=== PATIENT | male | born 1960 | race Caucasian/White ===

== ENCOUNTER 2017-12-29 14:58 | Inpatient (IN) | payer MEDICAID ==
[~2017-12-29] VITALS: Ht 175.3 cm; Wt 63.0 kg
[~2017-12-29 14:58] MED LIST: IBUP-1985 PO; METH-360 PO
[2017-12-29 15:46] LABS: BASOPHILS # (AUTO) 0.1 X10'3 (0-0.2); BASOPHILS % (AUTO) 0.5 % (0-1); EOSINOPHILS % (AUTO) 0 % (0-6); HEMATOCRIT 49.4 % (42.0-52.0); HEMOGLOBIN 16.5 g/dl (14.0-17.9); LYMPHOCYTES % (AUTO) 19.6 % (21-51); MEAN CORPUSCULAR HEMOGLOBIN 31.5 PG (27.0-31.0); MEAN CORPUSCULAR HGB CONC 33.3 % (33.0-36.5); MEAN CORPUSCULAR VOLUME 94.6 FL (78-98); MEAN PLATELET VOLUME 9.8 FL (7.4-10.4); MONOCYTES # (AUTO) 0.6 X10'3 (0-0.9); MONOCYTES % (AUTO) 5.6 % (2-12); NEUTROPHILS # (AUTO) 7.6 X10'3 (1.8-7.7); NEUTROPHILS % (AUTO) 74.3 % (42-75); PLATELET COUNT 209 X10'3 (140-440); RED BLOOD COUNT 5.22 X10'6 (4.70-6.10); RED CELL DISTRIBUTION WIDTH 14.2 % (11.5-14.5); WHITE BLOOD COUNT 10.2 X10'3 (4.5-11.0)
[2017-12-29 15:53] LABS: INR 1.1 INR; PARTIAL THROMBOPLASTIN TIME 27 SECONDS (22-32); PROTHROMBIN TIME 11.4 SECONDS (9.0-12.0)
[2017-12-29 15:59] LABS: ALANINE AMINOTRANSFERASE 85 U/L (12-78); ALBUMIN 3.6 G/DL (3.4-5.0); ALBUMIN/GLOBULIN RATIO 1.3 (1.1-1.5); ALKALINE PHOSPHATASE 80 IU/L (46-116); ANION GAP 9 (8-16); ASPARTATE AMINO TRANSFERASE 38 U/L (10-37); BILIRUBIN,TOTAL 1.2 MG/DL (0.1-1.0); BLOOD UREA NITROGEN 25 MG/DL (7-18); BUN/CREATININE RATIO 19.8 (5.4-32.0); CHLORIDE 107 MMOL/L (99-107); CREATININE 1.26 MG/DL (0.60-1.10); GLUCOSE 169 MG/DL (70-104); POTASSIUM 4.6 MMOL/L (3.5-5.1); SODIUM 143 MMOL/L (135-145); TOTAL CARBON DIOXIDE 26.7 MMOL/L (24-32); TOTAL PROTEIN 6.4 G/DL (6.4-8.2); eGFR 59 ML/MIN
[2017-12-29] MEDS ORDERED: furosemide 10 MG/1 ML 10ml inj IV ONE (17:00)
[2017-12-29 17:17] LABS: ETHANOL < 0.010 GM/DL (0.0-0.010)
[2017-12-29] MEDS ORDERED: ASPI-611 PO (17:39)
[2017-12-29 17:42] LABS: URINE AMPHETAMINE SCREEN POSITIVE (Neg); URINE BARBITUATE SCREEN NEGATIVE (Neg); URINE BENZODIAZEPINES SCREEN NEGATIVE (Neg); URINE CANNABINOID SCREEN NEGATIVE (Neg); URINE COCAINE SCREEN NEGATIVE (Neg); URINE METHADONE SCREEN NEGATIVE (Neg); URINE OPIATE SCREEN NEGATIVE (Neg); URINE PHENCYCLIDINE SCREEN NEGATIVE (Neg)
[2017-12-29] MEDS ORDERED: potassium Cl 20 mEq SR tablet PO PRN ×2 (18:00)
[2017-12-29] MEDS ORDERED: ondansetron/PF 4mg/2ml inj IV PRN (18:00)
[2017-12-29] MEDS ORDERED: LORazepam 1 MG tablet PO PRN (18:00)
[2017-12-29] MEDS ORDERED: LORazepam 2 mg/ml vial IV PRN (18:00)
[2017-12-29] MEDS ORDERED: mag hydrox/Alum hydrox/simeth 30ml oral suspension PO PRN (18:00)
[2017-12-29] MEDS ORDERED: HYDROcodone/acetaminophen 5mg/325mg tablet PO PRN (18:00)
[2017-12-29] MEDS ORDERED: HYDROcodone/acetaminophen 10/325mg tab PO PRN (18:00)
[2017-12-29] MEDS ORDERED: thiamine 100mg/ml 2ml inj. IV ONE (18:00)
[2017-12-29] MEDS ORDERED: dextrose 50%-water 50ml dispensing syringe IV PRN (18:00)
[2017-12-29] MEDS ORDERED: magnesium 4gm in 100ml NS 100 ML IV PRN (18:00)
[2017-12-29] MEDS ORDERED: potassium Cl 40MEQ/NS 500ml 500 ML IV PRN ×2 (18:00)
[2017-12-29] MEDS ORDERED: acetaminophen 325mg tablet PO PRN ×2 (18:00)
[2017-12-29] MEDS ORDERED: magnesium hydroxide 30ml (MOM) UD suspension PO PRN (18:00)
[2017-12-29] MEDS ORDERED: magnesium 2GM in 50ml NS 50 ML IV PRN (18:00)
[2017-12-29] MEDS ORDERED: magnesium Cl slow-release 64mg tablet PO PRN (18:00)
[2017-12-29] MEDS ORDERED: albuterol 2.5 MG/3 ML nebule NEB PRN (18:10)
[2017-12-29] MEDS ORDERED: iohexol 350MG/ML 100ml bottle IV ONE (18:12)
[2017-12-29] MEDS: normal saline 1000ml 1,000 ML IV SCH (19:33)
[2017-12-29] MEDS: metoprolol tartrate 25mg tablet PO SCH (19:33)
[2017-12-29 19:51] LABS: ABG BASE EXCESS -3.8 mmol/L (-2.0-3.0); ABG HCO3 18.2 mmol/L (22.0-26.0); ABG OXYGEN SATURATION 97.5 % (95-98); ABG PCO2 (T) 25.9 mmHg (35.0-48.0); ABG PH (T) 7.462 (7.350-7.450); ABG PO2 (T) 89.8 mmHg (83-108); ALLEN'S TEST Positive; FCOHb 0.8 % (0.5-1.5); FMetHb 0.3 % (0.3-1.12); FO2Hb 96.4 % (94-100); PATIENT TEMPERATURE 36.3; RESPIRATORY RATE (OBSERVED) 20 b/min; TOTAL HEMOGLOBIN 17.1 G/dl (14.0-18.0)
[2017-12-29 20:50] LABS: CLARITY,URINE CLEAR (Clear); COLOR,URINE YELLOW (Yellow); GLUCOSE, URINE NEGATIVE (Neg); KETONES,URINE NEGATIVE (Neg); LEUKOCYTE ESTERASE ,URINE NEGATIVE (Neg); NITRITES, URINE NEGATIVE (Neg); OCCULT BLOOD,URINE NEGATIVE (Neg); PH,URINE 5.5 (4.8-8.0); PROTEIN,URINE TRACE mg/dl (Neg); UROBILINOGEN,URINE 0.2 E.U/dL (0.2-1.0)
[2017-12-29 20:53] LABS: UA COLLECTION TYPE CLN CATCH MIDSTREAM
[2017-12-29 20:56] LABS: BACTERIA,URINE FEW /HPF (Neg); MUCUS STRANDS FEW /LPF (Neg); RBC,URINE 0-2 /HPF (0-2); SQUAMOUS EPITHELIAL CELL,UR FEW /LPF (FEW); WBC,URINE 0-4 /HPF (0-4)
[2017-12-29] MEDS ORDERED: CefTRIAXone 2gm/D5W 50ml 50 ML IV SCH (21:00)
[2017-12-29] MEDS ORDERED: temazepam 15mg capsule PO PRN (21:00)
[2017-12-29 21:45] VITALS: BP 117/84
[2017-12-30 00:21] VITALS: BP 115/81
[2017-12-30 05:30] LABS: BASOPHILS # (AUTO) 0.1 X10'3 (0-0.2); BASOPHILS % (AUTO) 0.7 % (0-1); EOSINOPHILS # (AUTO) 0.2 X10'3 (0-0.9); EOSINOPHILS % (AUTO) 1.5 % (0-6); HEMATOCRIT 46.2 % (42.0-52.0); HEMOGLOBIN 15.7 g/dl (14.0-17.9); LYMPHOCYTES # (AUTO) 1.7 X10'3 (1.1-4.8); LYMPHOCYTES % (AUTO) 16.3 % (21-51); MEAN CORPUSCULAR HEMOGLOBIN 31.9 PG (27.0-31.0); MEAN CORPUSCULAR VOLUME 93.9 FL (78-98); MEAN PLATELET VOLUME 10.2 FL (7.4-10.4); MONOCYTES # (AUTO) 0.6 X10'3 (0-0.9); MONOCYTES % (AUTO) 5.8 % (2-12); NEUTROPHILS % (AUTO) 75.7 % (42-75); PLATELET COUNT 181 X10'3 (140-440); RED BLOOD COUNT 4.93 X10'6 (4.70-6.10); RED CELL DISTRIBUTION WIDTH 14.3 % (11.5-14.5); WHITE BLOOD COUNT 10.5 X10'3 (4.5-11.0)
[2017-12-30 05:46] LABS: ALANINE AMINOTRANSFERASE 77 U/L (12-78); ALBUMIN 3.2 G/DL (3.4-5.0); ALBUMIN/GLOBULIN RATIO 1.2 (1.1-1.5); ALKALINE PHOSPHATASE 73 IU/L (46-116); ANION GAP 13 (8-16); ASPARTATE AMINO TRANSFERASE 35 U/L (10-37); BILIRUBIN,TOTAL 0.5 MG/DL (0.1-1.0); BLOOD UREA NITROGEN 31 MG/DL (7-18); BUN/CREATININE RATIO 24.6 (5.4-32.0); CALCIUM 8.9 MG/DL (8.5-10.1); CHLORIDE 105 MMOL/L (99-107); CREATININE 1.26 MG/DL (0.60-1.10); GLUCOSE 100 MG/DL (70-104); MAGNESIUM 2.1 MG/DL (1.5-2.4); POTASSIUM 4.1 MMOL/L (3.5-5.1); SODIUM 140 MMOL/L (135-145); TOTAL CARBON DIOXIDE 22.2 MMOL/L (24-32); TOTAL PROTEIN 5.9 G/DL (6.4-8.2); eGFR 59 ML/MIN
[2017-12-30 05:56] LABS: LARGE PLATELETS FEW; PLATELET ESTIMATE NORMAL
[2017-12-30 07:33] VITALS: BP 130/85
[2017-12-30] MEDS: K and/or MAG REPLACEMENT MC SCH (08:00)
[2017-12-30] MEDS ORDERED: aspirin 81mg tablet.DR PO SCH ×2 (08:00→08:15)
[2017-12-30] MEDS: metoprolol tartrate 25mg tablet PO SCH (08:36)
[2017-12-30] MEDS: enoxaparin 40mg/0.4ml syringe SQ SCH (08:38)
[2017-12-30 11:33] VITALS: BP 114/81
[2017-12-30] MEDS ORDERED: LORazepam 2 mg/ml vial IV PRN (12:05)
[2017-12-30] MEDS ORDERED: LORazepam 1 MG tablet PO PRN (12:05)
[2017-12-30 20:00] VITALS: BP 122/91
[2017-12-30] MEDS: carVEDilol 3.125mg tablet PO SCH (20:22)
[2017-12-30] MEDS: normal saline 1000ml 1,000 ML IV SCH (20:32)
[2017-12-31] VITALS: BP 119/78
[2017-12-31] MEDS: normal saline 1000ml 1,000 ML IV SCH (02:13)
[2017-12-31 05:24] LABS: BASOPHILS # (AUTO) 0.1 X10'3 (0-0.2); EOSINOPHILS # (AUTO) 0.2 X10'3 (0-0.9); EOSINOPHILS % (AUTO) 1.9 % (0-6); HEMATOCRIT 45.1 % (42.0-52.0); HEMOGLOBIN 15.1 g/dl (14.0-17.9); LYMPHOCYTES # (AUTO) 1.6 X10'3 (1.1-4.8); LYMPHOCYTES % (AUTO) 18.2 % (21-51); MEAN CORPUSCULAR HEMOGLOBIN 31.6 PG (27.0-31.0); MEAN CORPUSCULAR HGB CONC 33.5 % (33.0-36.5); MEAN CORPUSCULAR VOLUME 94.2 FL (78-98); MEAN PLATELET VOLUME 9.8 FL (7.4-10.4); MONOCYTES # (AUTO) 0.5 X10'3 (0-0.9); MONOCYTES % (AUTO) 5.7 % (2-12); NEUTROPHILS # (AUTO) 6.5 X10'3 (1.8-7.7); NEUTROPHILS % (AUTO) 73.2 % (42-75); RED BLOOD COUNT 4.78 X10'6 (4.70-6.10); RED CELL DISTRIBUTION WIDTH 14.8 % (11.5-14.5); WHITE BLOOD COUNT 8.9 X10'3 (4.5-11.0)
[2017-12-31 05:50] LABS: ALANINE AMINOTRANSFERASE 74 U/L (12-78); ALBUMIN/GLOBULIN RATIO 1.2 (1.1-1.5); ALKALINE PHOSPHATASE 68 IU/L (46-116); ANION GAP 8 (8-16); ASPARTATE AMINO TRANSFERASE 33 U/L (10-37); BILIRUBIN,TOTAL 0.8 MG/DL (0.1-1.0); BLOOD UREA NITROGEN 25 MG/DL (7-18); BUN/CREATININE RATIO 22.1 (5.4-32.0); CALCIUM 8.5 MG/DL (8.5-10.1); CHLORIDE 110 MMOL/L (99-107); CREATININE 1.13 MG/DL (0.60-1.10); GLUCOSE 102 MG/DL (70-104); POTASSIUM 4.6 MMOL/L (3.5-5.1); SODIUM 142 MMOL/L (135-145); TOTAL PROTEIN 5.5 G/DL (6.4-8.2); eGFR 67 ML/MIN
[2017-12-31 06:08] LABS: PLATELET COUNT 194 X10'3 (140-440)
[2017-12-31 07:01] VITALS: BP 114/64
[2017-12-31] MEDS: carVEDilol 3.125mg tablet PO SCH (07:48)
[2017-12-31] MEDS: enoxaparin 40mg/0.4ml syringe SQ SCH (07:51)
[2017-12-31] MEDS: K and/or MAG REPLACEMENT MC SCH (07:51)
[2017-12-31] MEDS ORDERED: lisinopril 5mg tablet PO SCH (08:00)
[2017-12-31] MEDS ORDERED: LISI-604 PO (08:39)
[2017-12-31] MEDS ORDERED: SPIR25TA3 PO (08:39)
[2017-12-31] MEDS ORDERED: COR3.125T PO (08:39)
[2017-12-31 12:21] VITALS: BP 116/84
== END 2017-12-31 13:56 | disposition home or self-care (01) | DRG 194 ==
LOC: ER 14:59 → ED HOLD 17:39 → SUR 3N 21:35
PROVIDERS: ADMIT Internal Medicine; ATTEND Internal Medicine
PROC: B32T1ZZ Computerized Tomography (CT Scan) of Left Pulmonary Artery using Low Osmolar Contrast (ICD-10-PCS; principal; 2017-12-29)
PROC: B3201ZZ Computerized Tomography (CT Scan) of Thoracic Aorta using Low Osmolar Contrast (ICD-10-PCS; 2017-12-29)
PROC: B32S1ZZ Computerized Tomography (CT Scan) of Right Pulmonary Artery using Low Osmolar Contrast (ICD-10-PCS; 2017-12-29)
DX: I50.21 Acute systolic (congestive) heart failure (principal); I42.0 Dilated cardiomyopathy; F10.10 Alcohol abuse, uncomplicated; F17.200 Nicotine dependence, unspecified, uncomplicated; F15.90 Other stimulant use, unspecified, uncomplicated; N28.9 Disorder of kidney and ureter, unspecified; R94.31 Abnormal electrocardiogram [ECG] [EKG]; Z79.899 Other long term (current) drug therapy; Z91.81 History of falling
CPT/HCPCS: 36415; 36600; 71045; 71275; 80053; 80305; 80320; 81001; 82803; 82948; 83605; 83735; 83880; 84484; 85018; 85025; 85610; 85730; 87040; 87070; 93005; 93306; 94760; 97116; 97161; 97530; J0696; J1650; J1940; J3411; J7030; Q9967

== ENCOUNTER 2020-03-04 12:02 | Inpatient (IN) | payer MEDICAID ==
[~2020-03-04] VITALS: Ht 175.3 cm; Wt 59.1 kg
[~2020-03-04 12:02] MED LIST changes: +ASPI-611 PO; +COR3.125T PO; -IBUP-1985 PO; +LISI-604 PO; -METH-360 PO; +SPIR25TA5 PO
[2020-03-04 12:29] LABS: BASOPHILS # (AUTO) 0.1 X10'3 (0-0.2); BASOPHILS % (AUTO) 0.8 % (0-1); EOSINOPHILS % (AUTO) 0.3 % (0-6); HEMATOCRIT 51.3 % (42.0-52.0); HEMOGLOBIN 16.9 g/dl (14.0-17.9); LYMPHOCYTES # (AUTO) 0.8 X10'3 (1.1-4.8); LYMPHOCYTES % (AUTO) 12.4 % (21-51); MEAN CORPUSCULAR HEMOGLOBIN 32.2 PG (27.0-31.0); MEAN CORPUSCULAR VOLUME 97.6 FL (78-98); MEAN PLATELET VOLUME 9.8 FL (7.4-10.4); MONOCYTES # (AUTO) 0.4 X10'3 (0-0.9); NEUTROPHILS # (AUTO) 5.3 X10'3 (1.8-7.7); NEUTROPHILS % (AUTO) 80.5 % (42-75); PLATELET COUNT 182 X10'3 (140-440); RED BLOOD COUNT 5.26 X10'6 (4.70-6.10); RED CELL DISTRIBUTION WIDTH 14.1 % (11.5-14.5); WHITE BLOOD COUNT 6.6 X10'3 (4.5-11.0)
[2020-03-04 12:43] LABS: ALANINE AMINOTRANSFERASE 53 U/L (12-78); ALBUMIN 3.6 G/DL (3.4-5.0); ALBUMIN/GLOBULIN RATIO 1.3 (1.1-1.5); ALKALINE PHOSPHATASE 46 IU/L (46-116); ANION GAP 11 (8-16); ASPARTATE AMINO TRANSFERASE 28 U/L (10-37); BILIRUBIN,TOTAL 1.8 MG/DL (0.1-1.0); BLOOD UREA NITROGEN 35 MG/DL (7-18); BUN/CREATININE RATIO 26.1 (5.4-32.0); CALCIUM 8.8 MG/DL (8.5-10.1); CHLORIDE 106 MMOL/L (99-107); CREATININE 1.34 MG/DL (0.60-1.10); GLUCOSE 129 MG/DL (70-104); SODIUM 137 MMOL/L (135-145); TOTAL CARBON DIOXIDE 20.5 MMOL/L (24-32); TOTAL PROTEIN 6.3 G/DL (6.4-8.2); eGFR 54 ML/MIN
[2020-03-04 12:52] LABS: LARGE PLATELETS FEW; PLATELET ESTIMATE NORMAL
[2020-03-04] MEDS ORDERED: iohexol 350MG/ML 100ml bottle IV ONE (12:55)
[2020-03-04] MEDS ORDERED: aspirin 81mg tab.chew PO ONE (12:55)
[2020-03-04] MEDS ORDERED: furosemide 10 MG/1 ML 10ml inj IV ONE (13:20)
[2020-03-04] MEDS ORDERED: magnesium hydroxide 30ml (MOM) UD suspension PO PRN (14:35)
[2020-03-04] MEDS ORDERED: ondansetron/PF 4mg/2ml inj IV PRN (14:35)
[2020-03-04] MEDS ORDERED: acetaminophen 325mg tablet PO PRN ×2 (14:35)
[2020-03-04] MEDS ORDERED: mag hydrox/Alum hydrox/simeth 30ml oral suspension PO PRN (14:35)
[2020-03-04] MEDS ORDERED: morphine 2 MG/ML inj. syringe IV PRN ×2 (14:35)
[2020-03-04] MEDS ORDERED: HYDROcodone/acetaminophen 5mg/325mg tablet PO PRN (14:35)
[2020-03-04] MEDS ORDERED: SPIR25TA5 PO (15:15)
[2020-03-04] MEDS ORDERED: SACU1TAB PO (15:15)
[2020-03-04] MEDS ORDERED: CARV6.253 PO (15:25)
--- NOTE | 2020-03-04 17:00 | NUR ---
RECEIVED TELEPHONE REPORT FROM ALISA WHITEHEAD
--- NOTE | 2020-03-04 17:01 | NUR ---
MARGARETH CARPIO:PLEASE CALL PRINCE [phone]. TY.
[2020-03-04 17:05] VITALS: BP 115/85
--- NOTE | 2020-03-04 18:30 | NUR ---
Patient in room PCU 3023. I have received report from ALISA Rosenberg and had the opportunity to ask questions and assume patient care.
--- NOTE | 2020-03-04 18:32 | NUR ---
Problems reprioritized. Patient report given, questions answered & plan of care reviewed with ALISA SPRINGER.
[2020-03-04 21:50] VITALS: BP 104/80
[2020-03-04] MEDS: furosemide 20 MG/2 ML vial IV SCH (21:57)
[2020-03-04] MEDS: carVEDilol 3.125mg tablet PO SCH (21:57)
[2020-03-05] VITALS (8 sets, daily range): BP systolic 89–107; BP diastolic 54–78
[2020-03-05 01:14] LABS: BASOPHILS # (AUTO) 0.1 X10'3 (0-0.2); HEMOGLOBIN 16.6 g/dl (14.0-17.9); MONOCYTES # (AUTO) 0.6 X10'3 (0-0.9); NEUTROPHILS # (AUTO) 5.4 X10'3 (1.8-7.7)
[2020-03-05 01:16] LABS: EOSINOPHILS # (AUTO) 0.1 X10'3 (0-0.9); EOSINOPHILS % (AUTO) 0.7 % (0-6); HEMATOCRIT 48.4 % (42.0-52.0); LYMPHOCYTES % (AUTO) 13.7 % (21-51); MEAN CORPUSCULAR HEMOGLOBIN 33.4 PG (27.0-31.0); MEAN CORPUSCULAR HGB CONC 34.3 g/dL (33.0-36.5); MEAN CORPUSCULAR VOLUME 97.4 FL (78-98); MEAN PLATELET VOLUME 10.2 FL (7.4-10.4); MONOCYTES % (AUTO) 8.4 % (2-12); NEUTROPHILS % (AUTO) 76.2 % (42-75); RED BLOOD COUNT 4.97 X10'6 (4.70-6.10); RED CELL DISTRIBUTION WIDTH 13.9 % (11.5-14.5)
[2020-03-05 01:19] LABS: ALBUMIN 3.5 G/DL (3.4-5.0); ANION GAP 11 (8-16); BLOOD UREA NITROGEN 42 MG/DL (7-18); BUN/CREATININE RATIO 26.4 (5.4-32.0); CALCIUM 8.7 MG/DL (8.5-10.1); CHLORIDE 103 MMOL/L (99-107); CHOL/HDL RATIO 3.4 (0.00-4.99); CHOLESTEROL 158 MG/DL (0-200); CREATININE 1.59 MG/DL (0.60-1.10); GLUCOSE 102 MG/DL (70-104); HDL CHOLESTEROL 47 MG/DL (35-60); LDL CHOLESTEROL 98 MG/DL (50-100); POTASSIUM 3.8 MMOL/L (3.5-5.1); SODIUM 137 MMOL/L (135-145); TOTAL CARBON DIOXIDE 23.1 MMOL/L (24-32); TRIGLYCERIDES 95 MG/DL (20-135); eGFR 45 ML/MIN
[2020-03-05 03:17] LABS: PLATELET COUNT 178 X10'3 (140-440)
--- NOTE | 2020-03-05 06:05 | NUR ---
Problems reprioritized. Patient report given, questions answered & plan of care reviewed with ALISA Rosenberg.
--- NOTE | 2020-03-05 06:37 | NUR ---
Patient in room PCU 3023. I have received report from ALISA SPRINGER and had the opportunity to ask questions and assume patient care.
[2020-03-05] MEDS: enoxaparin 40mg/0.4ml syringe SUBCUT SCH (08:00)
[2020-03-05] MEDS: furosemide 20 MG/2 ML vial IV SCH ×4 (08:30→19:39)
[2020-03-05] MEDS: carVEDilol 3.125mg tablet PO SCH ×3 (08:34→20:00)
[2020-03-05] MEDS: spironolactone 25 MG tablet PO SCH (08:39)
[2020-03-05] MEDS: lisinopril 2.5mg tablet PO SCH (08:40)
--- NOTE | 2020-03-05 18:09 | NUR ---
Problems reprioritized. Patient report given, questions answered & plan of care reviewed with ALISA SPRINGER.
--- NOTE | 2020-03-05 18:29 | NUR ---
Patient in room PCU 3023. I have received report from Irene Rosenberg and had the opportunity to ask questions and assume patient care.
--- NOTE | 2020-03-05 19:40 | NUR ---
Patient BP is below perameter togive IV lasix and Carvedilol. Will retake BP in an hour. Scanned and opened meds, aptient condition changed. Will waste meds in waste container.
[2020-03-06 02:21] VITALS: BP 96/65
[2020-03-06 05:24] LABS: EOSINOPHILS # (AUTO) 0.1 X10'3 (0-0.9); LYMPHOCYTES # (AUTO) 0.9 X10'3 (1.1-4.8); MEAN CORPUSCULAR HEMOGLOBIN 32.7 PG (27.0-31.0); MONOCYTES # (AUTO) 0.6 X10'3 (0-0.9); PLATELET COUNT 168 X10'3 (140-440); RED CELL DISTRIBUTION WIDTH 13.8 % (11.5-14.5); WHITE BLOOD COUNT 6.2 X10'3 (4.5-11.0)
[2020-03-06 05:25] LABS: BASOPHILS # (AUTO) 0.1 X10'3 (0-0.2); BASOPHILS % (AUTO) 1.2 % (0-1); EOSINOPHILS % (AUTO) 1.9 % (0-6); HEMOGLOBIN 16.3 g/dl (14.0-17.9); LYMPHOCYTES % (AUTO) 14.8 % (21-51); MEAN CORPUSCULAR HGB CONC 33.9 g/dL (33.0-36.5); MEAN CORPUSCULAR VOLUME 96.3 FL (78-98); MEAN PLATELET VOLUME 10.7 FL (7.4-10.4); MONOCYTES % (AUTO) 10.2 % (2-12); NEUTROPHILS # (AUTO) 4.4 X10'3 (1.8-7.7); NEUTROPHILS % (AUTO) 71.9 % (42-75); RED BLOOD COUNT 4.99 X10'6 (4.70-6.10)
[2020-03-06 05:32] LABS: ALBUMIN 3.3 G/DL (3.4-5.0); ANION GAP 8 (8-16); BLOOD UREA NITROGEN 39 MG/DL (7-18); BUN/CREATININE RATIO 29.5 (5.4-32.0); CALCIUM 8.7 MG/DL (8.5-10.1); CHLORIDE 104 MMOL/L (99-107); CREATININE 1.32 MG/DL (0.60-1.10); GLUCOSE 130 MG/DL (70-104); SODIUM 138 MMOL/L (135-145); TOTAL CARBON DIOXIDE 25.8 MMOL/L (24-32); eGFR 55 ML/MIN
[2020-03-06 06:00] VITALS: BP 95/65
--- NOTE | 2020-03-06 06:25 | NUR ---
Patient in room PCU 3023. I have received report from Mignon CUELLAR and had the opportunity to ask questions and assume patient care.
--- NOTE | 2020-03-06 06:31 | NUR ---
Problems reprioritized. Patient report given, questions answered & plan of care reviewed with ALISA Landry. Addendum: 03/06/20 at 0638 by Mignon Harmon RN ALISA Li
--- NOTE | 2020-03-06 06:31 | NUR ---
Patient in room PCU 3023. I have received report from Mignon CUELLAR and had the opportunity to ask questions and assume patient care.
[2020-03-06 06:44] LABS: LARGE PLATELETS FEW; PLATELET ESTIMATE NORMAL
[2020-03-06] MEDS: carVEDilol 3.125mg tablet PO SCH (08:00)
[2020-03-06] MEDS: lisinopril 2.5mg tablet PO SCH (08:00)
[2020-03-06] MEDS: furosemide 20 MG/2 ML vial IV SCH (08:00)
[2020-03-06] MEDS: spironolactone 25 MG tablet PO SCH (08:30)
[2020-03-06] MEDS: enoxaparin 40mg/0.4ml syringe SUBCUT SCH (09:09)
[2020-03-06] MEDS ORDERED: COR3.125T PO (10:34)
[2020-03-06] MEDS ORDERED: FURO-150 PO (10:34)
[2020-03-06] MEDS ORDERED: LISI2.5T2 PO (10:34)
[2020-03-06 11:00] VITALS: BP 110/53
--- NOTE | 2020-03-06 13:07 | NUR ---
Pt DC patient discharge instructions was provided and signature obtained. told patient to schedule a follow up appointment with Dr. Rhianna BRIGGS. pt will make own FU appointment. patient home medications are with the patient. tele box retrieved from patient and given to the telegraphic typewriter mechanic. PIV removed and cannula intact, no complications from IV. recent VS are stable and patient is stable for DC. all belongings are with the patient. patient was wheeled out of the hospital and is transported by their father. Addendum: 03/06/20 at 1535 by Guillermo Ceballos RN Dr. Shirin andersen called to make follow up appt but was notified by the office that the Pt himself needs to call Dr. Shirin andersen to make follow up appt. Dr. Carpio office number included with DC paperwork for Pt. Pt instructed to call Dr. Shirin andersen tomorrow to make follow up appt. Pt stated that he will call Dr. Shirin andersen tomorrow 03/07/20 to make follow up appt.
== END 2020-03-06 12:56 | disposition home or self-care (01) | DRG 194 ==
LOC: ER 12:03 → ED HOLD 14:34 → PCU 3S 17:05
PROVIDERS: ADMIT Internal Medicine; ATTEND Internal Medicine
PROC: B32T1ZZ Computerized Tomography (CT Scan) of Left Pulmonary Artery using Low Osmolar Contrast (ICD-10-PCS; principal; 2020-03-04)
PROC: B3201ZZ Computerized Tomography (CT Scan) of Thoracic Aorta using Low Osmolar Contrast (ICD-10-PCS; 2020-03-04)
PROC: B32S1ZZ Computerized Tomography (CT Scan) of Right Pulmonary Artery using Low Osmolar Contrast (ICD-10-PCS; 2020-03-04)
DX: I50.23 Acute on chronic systolic (congestive) heart failure (principal); I24.8 Other forms of acute ischemic heart disease; I42.9 Cardiomyopathy, unspecified; N18.3 Chronic kidney disease, stage 3 (moderate); N17.9 Acute kidney failure, unspecified; Z87.891 Personal history of nicotine dependence; Z79.899 Other long term (current) drug therapy; Z79.82 Long term (current) use of aspirin
CPT/HCPCS: 36415; 71045; 71275; 80048; 80053; 80061; 83880; 84484; 85025; 87081; 93005; 93306; 96374; 99285; G0378; J1650; J1940; Q9967